=== PATIENT | male | born 1970 | race Two or more races ===

== ENCOUNTER → 2020-09-19 19:05 | Emergency (ER) | payer MEDICAID, OTHER ==
[~2020-09-19] VITALS: Ht 188 cm; Wt 108.9 kg
== END ==
LOC: ER 19:05 → EDBD 19:05 → ER 09-20 17:09
DX: I46.9 Cardiac arrest, cause unspecified (principal); R41.82 Altered mental status, unspecified; R56.9 Unspecified convulsions
CPT/HCPCS: 31500; 92950